=== PATIENT | female | born 1940 | race Caucasian/White ===

== ENCOUNTER → 2016-11-30 | Outpatient (REF) | payer MEDICARE ==
[2016-11-30 09:50] LABS: BILIRUBIN,URINE Negative (Negative); CLARITY,URINE Clear; COLOR,URINE Yellow; GLUCOSE, URINE (UA) Negative (Negative); LEUKOCYTE ESTERASE, URINE Negative (Negative); UROBILINOGEN,URINE 0.2 mg/dL (0.2-1.0)
== END ==
LOC: LAB 09:20
PROVIDERS: ATTEND Nurse Practitioner Family
DX: R39.15 Urgency of urination (principal)
CPT/HCPCS: 81003

== ENCOUNTER → 2016-12-10 | Outpatient (CLI) | payer MEDICARE | LOC: RAD 10:20 | PROVIDERS: ATTEND Nurse Practitioner Family | DX: M81.0 Age-related osteoporosis without current pathological fracture (principal) | CPT/HCPCS: 77080 ==

== ENCOUNTER 2016-12-14 20:58 | Emergency (ER) | payer MEDICARE ==
[~2016-12-14] VITALS: Ht 167.6 cm; Wt 66.5 kg
[2016-12-14] MEDS ORDERED: FLUORESCEIN (FLUOR-I-STRIPS) 1 MG STRIP OD ONE (21:35)
[2016-12-14] MEDS ORDERED: TETRACAINE 0.5% OPHTHALMIC SOLUTION 4 ML BTL OD ONE (21:35)
[2016-12-14] MEDS ORDERED: EYE WASH 120 ML BTL ONE (21:44)
[2016-12-14] MEDS ORDERED: EYE WASH 120 ML BTL OD ONE (21:45)
[2016-12-14] MEDS ORDERED: ED- HYDROcodone/ACETAMINOPHEN 5MG/325MG (NORCO) 6 TABLETS/BTL PO ONE (22:05)
[2016-12-14] MEDS ORDERED: ED- CIPROFLOXACIN 0.3% OPHTHALMIC DROPS (CILOXAN) 2.5 ML BTL OD ONE (22:05)
--- NOTE | 2016-12-14 22:30 | NUR ---
Explained and demonstrated proper technique for instilling eye drops to pt and to her - both verbalize understanding.
[2016-12-14 23:26] VITALS: BP 147/64
== END 2016-12-14 22:33 | disposition home or self-care (01) ==
LOC: ED 20:59
DX: S05.01XA Injury of conjunctiva and corneal abrasion without foreign body, right eye, initial encounter (principal); W26.2XXA Contact with edge of stiff paper, initial encounter
CPT/HCPCS: 99283; A9270; 99282

== ENCOUNTER → 2016-12-14 | Outpatient (REF) | payer MEDICARE | LOC: LAB 09:47 | PROVIDERS: ATTEND Family Medicine | DX: M81.0 Age-related osteoporosis without current pathological fracture (principal) | CPT/HCPCS: 82306; 82310 ==

== ENCOUNTER → 2016-12-14 | Outpatient (CLI) | payer MEDICARE | LOC: RAD 07:53 | PROVIDERS: ATTEND Nurse Practitioner Family | DX: Z12.31 Encounter for screening mammogram for malignant neoplasm of breast (principal) ==